=== PATIENT | female | born 1950 | race Caucasian/White ===

== ENCOUNTER → 2016-09-21 | Outpatient (CLI) | payer OTHER ==
[~2016-09-21] MED LIST: AKWA TEARS 15 M15 ML OPH; ALEVE220 MG PO; ALLERGY MEDICAT25 MG PO; ALPRAZOLAM0.5 M1 PO; ANTIVERT25 MG PO; ASPIRIN81 M1 PO; BENADRYL ALLERG25 M5 PO; BENADRYL25 MG PO; BENICAR20 MG PO; CARVEDILOL12.5 MG PO; CARVEDILOL6.25 MG PO; CLOPIDOGREL75 MG PO; COZAAR25 M1 PO; COZAAR25 MG PO; COZAAR50 M1 PO; Carafate1 GM PO; DAYPRO600 M1 PO; DONEPEZIL HCL5 MG PO; FAMOTIDINE40 MG PO; FLEXERIL10 MG PO; FLUTICASON0.05 MG/A2 NAS; HYDROCODONE BIT1 T11 PO; IMDUR ER30 MG PO; INCRUSE EL62.5 MCG/A INH; LIPITOR20 MG PO; LOSARTAN POTASS50 M1 PO; MEDROL DOSEPAK4 MG PO; Motrin,Rufen800 MG PO; NAPROXEN500 M1 PO; NEXIUM40 MG PO; PEPCID40 MG PO; PLAVIX75 MG PO; PREDNISONE10 MG PO; PREDNISONE20 MG PO; PREDNISONE50 MG PO; PREMARIN0.625 MG PO; PRILOSEC20 MG PO; PRILOSEC40 MG PO; ROBAXIN750 MG PO; SIMVASTATIN20 MG PO; SINGULAIR10 MG PO; SPIRIVA -- 3018 MCG PO; SYMBICORT 10.10.2 M1 IH; SYMBICORT1 AE1 INH; SYNTHROID,LEV100 MCG PO; SYNTHROID,LEV175 MCG PO; TESSALON PERLE100 MG PO; THEO-24200 MG PO; TORADOL10 MG PO; VENTOLIN 02.5 MG/3 M INH; VENTOLIN H0.09 MG/AC INH; VENTOLIN0.09 MG/AC IH; VENTOLIN0.09 MG/AC INH; VICODIN 5/500 505 MG PO; VICODIN 500 MG-1 TAB PO; XANAX0.5 MG PO; ZITHROMAX250 MG PO; ZOCOR40 MG PO
== END | disposition home or self-care (01) ==
LOC: CT 09:36
DX: I25.10 Atherosclerotic heart disease of native coronary artery without angina pectoris (principal); R91.1 Solitary pulmonary nodule; I10 Essential (primary) hypertension; Z95.1 Presence of aortocoronary bypass graft

== ENCOUNTER → 2016-12-27 | Outpatient (CLI) | payer OTHER ==
[2016-12-27 13:04] LABS: BASO # 0.1 10*3/uL (0.0-0.1); BASO % 0.8 % (0.0-1.0); EOS # 0.1 10*3/uL (0.0-0.4); EOS % 1.2 % (1.0-4.0); HEMATOCRIT 48.3 % (37.0-47.0); HEMOGLOBIN 15.8 g/dl (12.0-16.0); IG # 0.1 10*3/uL (0.0-0.1); LYMPH # 2.2 10*3/uL (1.3-4.4); LYMPH % 18.3 % (27.0-41.0); MEAN CELL VOLUME 94.2 fl (81.0-99.0); MEAN CORPUSCULAR HGB 30.8 pg (27.0-31.0); MEAN CORPUSCULAR HGB CONC 32.7 g/dl (33.0-37.0); MONO # 0.7 10*3/uL (0.1-1.0); MONO % 5.6 % (3.0-9.0); NEUT # 8.9 10*3/uL (2.3-7.9); NEUT % 73.5 % (47.0-73.0); PLATELET COUNT AUTOMATED 243 10*3/uL (130-400); RED BLOOD COUNT 5.13 10*6/uL (4.10-5.10); RED CELL DISTRI WIDTH 14.1 % (0-14.5); WHITE BLOOD COUNT 12.1 10*3/uL (4.8-10.8)
== END | disposition home or self-care (01) ==
LOC: LAB 12:43
PROVIDERS: Internal Medicine Hematology & Oncology
DX: D75.1 Secondary polycythemia (principal); D72.829 Elevated white blood cell count, unspecified

== ENCOUNTER → 2017-01-17 | Outpatient (CLI) | payer OTHER ==
[2017-01-17 13:19] LABS: BASO # 0.1 10*3/uL (0.0-0.1); BASO % 0.9 % (0.0-1.0); EOS # 0.2 10*3/uL (0.0-0.4); EOS % 2.6 % (1.0-4.0); HEMATOCRIT 47.2 % (37.0-47.0); HEMOGLOBIN 15.3 g/dl (12.0-16.0); LYMPH # 2.3 10*3/uL (1.3-4.4); LYMPH % 28.5 % (27.0-41.0); MEAN CELL VOLUME 95.2 fl (81.0-99.0); MEAN CORPUSCULAR HGB 30.8 pg (27.0-31.0); MEAN CORPUSCULAR HGB CONC 32.4 g/dl (33.0-37.0); MEAN PLATELET VOLUME 10.3 fl (9.6-12.3); MONO # 0.5 10*3/uL (0.1-1.0); NEUT % 61.6 % (47.0-73.0); PLATELET COUNT AUTOMATED 201 10*3/uL (130-400); RED BLOOD COUNT 4.96 10*6/uL (4.10-5.10); RED CELL DISTRI WIDTH 14.3 % (0-14.5); WHITE BLOOD COUNT 8.1 10*3/uL (4.8-10.8)
== END | disposition home or self-care (01) ==
LOC: LAB 13:04
PROVIDERS: Internal Medicine Hematology & Oncology
DX: D75.1 Secondary polycythemia (principal); D72.829 Elevated white blood cell count, unspecified

== ENCOUNTER → 2017-01-31 | Outpatient (CLI) | payer OTHER | END | disposition home or self-care (01) | LOC: MRI 09:00 | DX: R42 Dizziness and giddiness (principal); F02.80 Dementia in other diseases classified elsewhere, unspecified severity, without behavioral disturbance, psychotic disturbance, mood disturbance, and anxiety; R51 Headache; I10 Essential (primary) hypertension ==

== ENCOUNTER → 2017-02-17 | Outpatient (CLI) | payer OTHER ==
[2017-02-17 09:26] LABS: BASO # 0.1 10*3/uL (0.0-0.1); BASO % 0.9 % (0.0-1.0); EOS # 0.2 10*3/uL (0.0-0.4); EOS % 2.3 % (1.0-4.0); HEMATOCRIT 50.5 % (37.0-47.0); HEMOGLOBIN 16.3 g/dl (12.0-16.0); LYMPH # 2.3 10*3/uL (1.3-4.4); LYMPH % 26.3 % (27.0-41.0); MEAN CORPUSCULAR HGB CONC 32.3 g/dl (33.0-37.0); MEAN PLATELET VOLUME 9.9 fl (9.6-12.3); MONO # 0.7 10*3/uL (0.1-1.0); MONO % 7.6 % (3.0-9.0); NEUT # 5.4 10*3/uL (2.3-7.9); NEUT % 62.4 % (47.0-73.0); PLATELET COUNT AUTOMATED 225 10*3/uL (130-400); RED BLOOD COUNT 5.26 10*6/uL (4.10-5.10); RED CELL DISTRI WIDTH 14.5 % (0-14.5); WHITE BLOOD COUNT 8.6 10*3/uL (4.8-10.8)
== END | disposition home or self-care (01) ==
LOC: LAB 08:57
PROVIDERS: Internal Medicine Hematology & Oncology
DX: D75.1 Secondary polycythemia (principal); D72.829 Elevated white blood cell count, unspecified

== ENCOUNTER → 2017-02-24 | Day surgery (SDC) | payer OTHER ==
[~2017-02-24] MED LIST changes: +CIPRO500 MG PO; +NORCO 5-325 TA1 EACH PO
--- NOTE | ~2017-02-24 | PROC NOTE ---
[place], [place] PROCEDURE NOTE [id number] UN[facility] #: [id number] ROOM: DOCTOR: MONO DESHPANDE MD BIRTHDATE: [birth year] DOS: 02/24/2017 PREOPERATIVE DIAGNOSIS: Left lower back skin lesion. POSTOPERATIVE DIAGNOSIS: Left lower back skin lesion. PROCEDURE: Excision of left lower back skin lesion. SURGEON: Moon Deshpande MD [employer] PROFESSOR: MS3. ANESTHESIA: Local (1% plain lidocaine). INDICATIONS: This is a 66-year-old lady with a longstanding history of mole on the left lower back and she wants it removed today. The procedure and its complications were explained to the patient in detail. Complications that were discussed included, but were not limited to bleeding, infection, hematoma/seroma/abscess formation and prolonged pain. She agreed to proceed. DESCRIPTION OF PROCEDURE: After identifying the patient, the patient was brought to the operating suite and placed in a right lateral position. The parts were painted and draped and a timeout procedure was called and an incision was marked in an elliptical fashion and local anesthesia was infiltrated in the line of the incision. Incision was made and the mass was excised in its entirety and sent for histopathological diagnosis. Thereafter, hemostasis was achieved with the help of electrocautery. The subcutaneous tissue was approximated with the help of 3-0 Vicryl in interrupted fashion and the skin edges approximated with the help of 4-0 Vicryl in a subcuticular interrupted fashion. Dressing was placed. The patient tolerated the procedure well and was brought back to the recovery room in stable fashion. There were no complications. Dr. Mono Deshpande, the attending surgeon, was present throughout the operating case. Mono Deshpande MD CM:PROCNOTE:PROCEDURE NOTE 0852 MONO DESHPANDE MD
[2017-02-24 08:05] VITALS: BP 158/91
[2017-02-24 08:28] VITALS: BP 157/104
== END | disposition home or self-care (01) ==
LOC: SDC 02-21 11:00
DX: L82.0 Inflamed seborrheic keratosis (principal); F41.9 Anxiety disorder, unspecified; E07.9 Disorder of thyroid, unspecified; I10 Essential (primary) hypertension; K21.9 Gastro-esophageal reflux disease without esophagitis; J43.9 Emphysema, unspecified; Z87.891 Personal history of nicotine dependence; Z90.710 Acquired absence of both cervix and uterus; J30.2 Other seasonal allergic rhinitis; Z95.2 Presence of prosthetic heart valve; Z83.3 Family history of diabetes mellitus; Z82.49 Family history of ischemic heart disease and other diseases of the circulatory system; Z80.9 Family history of malignant neoplasm, unspecified; Z82.5 Family history of asthma and other chronic lower respiratory diseases; Z98.890 Other specified postprocedural states

== ENCOUNTER 2017-02-25 10:24 | Emergency (ER) | payer OTHER ==
[~2017-02-25] VITALS: Wt 86.2 kg
[~2017-02-25 10:24] MED LIST changes: -CIPRO500 MG PO
[2017-02-25 10:25] VITALS: BP 164/76
[2017-02-25 10:47] LABS: BASO # 0.1 10*3/uL (0.0-0.1); BASO % 0.9 % (0.0-1.0); EOS # 0.2 10*3/uL (0.0-0.4); EOS % 2.5 % (1.0-4.0); HEMATOCRIT 50.1 % (37.0-47.0); HEMOGLOBIN 16.4 g/dl (12.0-16.0); LYMPH # 2.1 10*3/uL (1.3-4.4); LYMPH % 28.1 % (27.0-41.0); MEAN CELL VOLUME 94.9 fl (81.0-99.0); MEAN CORPUSCULAR HGB 31.1 pg (27.0-31.0); MEAN CORPUSCULAR HGB CONC 32.7 g/dl (33.0-37.0); MONO # 0.4 10*3/uL (0.1-1.0); MONO % 4.8 % (3.0-9.0); NEUT # 4.8 10*3/uL (2.3-7.9); NEUT % 63.4 % (47.0-73.0); PLATELET COUNT AUTOMATED 202 10*3/uL (130-400); RED BLOOD COUNT 5.28 10*6/uL (4.10-5.10); RED CELL DISTRI WIDTH 14.5 % (0-14.5); WHITE BLOOD COUNT 7.6 10*3/uL (4.8-10.8)
[2017-02-25 10:56] LABS: PROTHROMBIN TIME 10.6 SECONDS (9.0-12.4)
[2017-02-25 11:00] LABS: ALBUMIN 4.3 gm/dl (3.1-4.5); BILIRUBIN, TOTAL 0.4 mg/dl (0.2-1.0); POTASSIUM 4.3 mmol/L (3.5-5.1); TOTAL PROTEIN 7.8 gm/dL (6.4-8.2)
[2017-02-25 11:17] LABS: BILIRUBIN NEGATIVE (NEGATIVE); BLOOD 3+ (NEGATIVE); CLARITY CLOUDY (CLEAR); COLOR YELLOW (YELLOW); GLUCOSE NEGATIVE (NEGATIVE); KETONE NEGATIVE (NEGATIVE); LEUKO ESTERASE 3+ (NEGATIVE); NITRITE NEGATIVE (NEGATIVE); PROTEIN NEGATIVE (NEGATIVE); SPECIFIC GRAVITY 1.015 (1.005-1.030); UROBILINOGEN 0.2 E.U./dl (0.2-1.0)
[2017-02-25 11:32] LABS: RBC TNTC rbc/hpf (0-2); URINE REFLEX COMMENT YES (NO); WBC TNTC wbc/hpf (0-5)
[2017-02-25] MEDS ORDERED: CIPRO500 MG PO (11:35)
== END 2017-02-25 12:03 | disposition home or self-care (01) ==
LOC: ED 10:24
PROVIDERS: Nurse Practitioner Family
DX: N39.0 Urinary tract infection, site not specified (principal); R31.9 Hematuria, unspecified; R03.0 Elevated blood-pressure reading, without diagnosis of hypertension; J44.9 Chronic obstructive pulmonary disease, unspecified; I25.10 Atherosclerotic heart disease of native coronary artery without angina pectoris; F03.90 Unspecified dementia, unspecified severity, without behavioral disturbance, psychotic disturbance, mood disturbance, and anxiety; K21.9 Gastro-esophageal reflux disease without esophagitis; K76.0 Fatty (change of) liver, not elsewhere classified; E03.9 Hypothyroidism, unspecified; F17.210 Nicotine dependence, cigarettes, uncomplicated; E66.9 Obesity, unspecified; Z68.39 Body mass index [BMI] 39.0-39.9, adult; Z98.890 Other specified postprocedural states; Z85.118 Personal history of other malignant neoplasm of bronchus and lung; Z90.710 Acquired absence of both cervix and uterus; Z79.899 Other long term (current) drug therapy

== ENCOUNTER → 2017-06-06 | Outpatient (CLI) | payer OTHER, MEDICARE ==
[~2017-06-06] MED LIST changes: +CIPRO500 MG PO
[2017-06-06 09:14] LABS: BUN 25 mg/dl (7-24); CREATININE 0.88 mg/dL (0.55-1.02)
== END | disposition home or self-care (01) ==
LOC: LAB 08:20 → CT 09:00
PROVIDERS: Family Medicine
DX: R91.1 Solitary pulmonary nodule (principal)

== ENCOUNTER → 2017-06-21 | Outpatient (CLI) | payer MEDICARE ==
[2017-06-21 10:47] LABS: BASO # 0.1 10*3/uL (0.0-0.1); EOS # 0.3 10*3/uL (0.0-0.4); HEMATOCRIT 47.4 % (37.0-47.0); HEMOGLOBIN 15.3 g/dl (12.0-16.0); LYMPH # 1.6 10*3/uL (1.3-4.4); LYMPH % 26.5 % (27.0-41.0); MEAN CELL VOLUME 96.3 fl (81.0-99.0); MEAN CORPUSCULAR HGB 31.1 pg (27.0-31.0); MEAN CORPUSCULAR HGB CONC 32.3 g/dl (33.0-37.0); MEAN PLATELET VOLUME 9.7 fl (9.6-12.3); MONO # 0.4 10*3/uL (0.1-1.0); NEUT # 3.7 10*3/uL (2.3-7.9); PLATELET COUNT AUTOMATED 242 10*3/uL (130-400); RED BLOOD COUNT 4.92 10*6/uL (4.10-5.10); RED CELL DISTRI WIDTH 14.4 % (0-14.5); WHITE BLOOD COUNT 6.2 10*3/uL (4.8-10.8)
== END | disposition home or self-care (01) ==
LOC: LAB 10:13
PROVIDERS: Internal Medicine Hematology & Oncology
DX: D75.1 Secondary polycythemia (principal)

== ENCOUNTER 2017-08-04 10:20 | Emergency (ER) | payer MEDICARE ==
[~2017-08-04] VITALS: Wt 90.7 kg
[2017-08-04 10:36] VITALS: BP 165/93
[2017-08-04 10:44] LABS: BASO # 0.1 10*3/uL (0.0-0.1); BASO % 0.8 % (0.0-1.0); EOS # 0.4 10*3/uL (0.0-0.4); EOS % 4.9 % (1.0-4.0); HEMATOCRIT 46.6 % (37.0-47.0); HEMOGLOBIN 15.6 g/dl (12.0-16.0); LYMPH % 27.6 % (27.0-41.0); MEAN CELL VOLUME 93.6 fl (81.0-99.0); MEAN CORPUSCULAR HGB 31.3 pg (27.0-31.0); MEAN CORPUSCULAR HGB CONC 33.5 g/dl (33.0-37.0); MEAN PLATELET VOLUME 9.7 fl (9.6-12.3); MONO # 0.6 10*3/uL (0.1-1.0); NEUT # 4.3 10*3/uL (2.3-7.9); NEUT % 58.4 % (47.0-73.0); PLATELET COUNT AUTOMATED 223 10*3/uL (130-400); RED BLOOD COUNT 4.98 10*6/uL (4.10-5.10); WHITE BLOOD COUNT 7.4 10*3/uL (4.8-10.8)
[2017-08-04 10:53] LABS: ACT PARTIAL THROMBO TIME 25.6 SECONDS (20.8-31.5)
[2017-08-04 11:05] LABS: ALBUMIN 3.8 gm/dl (3.1-4.5); ALKALINE PHOSPHATASE 101 U/L (45-117); BUN 19 mg/dl (7-24); CHLORIDE 104 mmol/L (98-107); CREATININE 1.02 mg/dL (0.55-1.02); POTASSIUM 4.4 mmol/L (3.5-5.1); SGOT/AST 37 IU/L (3-35); SGPT/ALT 59 U/L (12-78); SODIUM 138 mmol/L (136-145); TOTAL PROTEIN 7.2 gm/dL (6.4-8.2)
[2017-08-04 11:08] LABS: TROPONIN I < 0.015 ng/ml (<0.045)
[2017-08-04 11:52] LABS: BILIRUBIN NEGATIVE (NEGATIVE); BLOOD NEGATIVE (NEGATIVE); COLOR YELLOW (YELLOW); GLUCOSE NEGATIVE (NEGATIVE); KETONE TRACE (NEGATIVE); LEUKO ESTERASE NEGATIVE (NEGATIVE); NITRITE NEGATIVE (NEGATIVE); PH 6.5 (5.0-9.0); UROBILINOGEN 0.2 E.U./dl (0.2-1.0)
[2017-08-04 12:13] LABS: CLARITY CLEAR (CLEAR); WBC 0-2 wbc/hpf (0-5)
== END 2017-08-04 12:19 | disposition left against medical advice (07) ==
LOC: ED 10:20
PROVIDERS: Emergency Medicine; Nurse Practitioner Family
DX: R07.89 Other chest pain (principal); F17.210 Nicotine dependence, cigarettes, uncomplicated; F10.10 Alcohol abuse, uncomplicated; Z79.899 Other long term (current) drug therapy; Z90.710 Acquired absence of both cervix and uterus; Z95.5 Presence of coronary angioplasty implant and graft

== ENCOUNTER 2017-09-07 12:56 | Emergency (ER) | payer MEDICARE ==
[~2017-09-07] VITALS: Ht 152.4 cm; Wt 90.7 kg
[2017-09-07 13:04] VITALS: BP 142/60
[2017-09-07 13:44] LABS: BASO # 0.1 10*3/uL (0.0-0.1); BASO % 0.8 % (0.0-1.0); EOS # 0.3 10*3/uL (0.0-0.4); EOS % 3.7 % (1.0-4.0); HEMATOCRIT 47.8 % (37.0-47.0); HEMOGLOBIN 15.8 g/dl (12.0-16.0); LYMPH # 1.8 10*3/uL (1.3-4.4); LYMPH % 21.7 % (27.0-41.0); MEAN CELL VOLUME 93.5 fl (81.0-99.0); MEAN CORPUSCULAR HGB 30.9 pg (27.0-31.0); MEAN CORPUSCULAR HGB CONC 33.1 g/dl (33.0-37.0); MEAN PLATELET VOLUME 9.6 fl (9.6-12.3); MONO # 0.7 10*3/uL (0.1-1.0); MONO % 8.7 % (3.0-9.0); NEUT # 5.4 10*3/uL (2.3-7.9); NEUT % 63.9 % (47.0-73.0); PLATELET COUNT AUTOMATED 234 10*3/uL (130-400); RED BLOOD COUNT 5.11 10*6/uL (4.10-5.10); RED CELL DISTRI WIDTH 13.7 % (0-14.5); WHITE BLOOD COUNT 8.4 10*3/uL (4.8-10.8)
[2017-09-07 13:59] LABS: ALBUMIN 4.2 gm/dl (3.1-4.5); CREATININE 1.2 mg/dL (0.55-1.02); POTASSIUM 4.4 mmol/L (3.5-5.1); TOTAL PROTEIN 7.7 gm/dL (6.4-8.2)
[2017-09-07] MEDS ORDERED: DELTASONE20 M1 PO (15:20)
[2017-09-07] MEDS ORDERED: VIBRAMYCIN100 MG PO (15:20)
== END 2017-09-07 15:29 | disposition home or self-care (01) ==
LOC: ED 12:56
PROVIDERS: Physician Assistant
DX: J44.1 Chronic obstructive pulmonary disease with (acute) exacerbation (principal); Z98.890 Other specified postprocedural states; Z90.710 Acquired absence of both cervix and uterus; Z79.899 Other long term (current) drug therapy; Z87.891 Personal history of nicotine dependence

== ENCOUNTER 2017-09-29 12:45 | Inpatient (IN) | payer MEDICARE ==
[~2017-09-29] VITALS: Ht 152.4 cm; Wt 93.9 kg
--- NOTE | ~2017-09-29 | EKG ---
[place], [place] ELECTROCARDIOGRAM REPORT NAME: ASHLEY ACVAZOS UNIT #: [id number] ROOM: [facility] DOCTOR: SMITH TREJO MD BIRTHDATE: [birth year] DOS: 09/29/2017 TIME: 1729 hours. FINDINGS: 1. Normal sinus rhythm at 74 beats per minute. 2. Left anterior hemiblock. 3. Low voltage T waves in lateral chest leads. 4. No significant change from ECG done about 5 hours earlier. SMITH TREJO MD CM:EKGRPT:ELECTROCARDIOGRAM REPORT 1349 1752 SMITH TREJO MD
--- NOTE | ~2017-09-29 | EKG ---
[place], [place] ELECTROCARDIOGRAM REPORT NAME: ASHLEY CAVAZOS UNIT #: [id number] ROOM: 502 DOCTOR: SMITH TREJO MD BIRTHDATE: [birth year] DOS: 09/29/2017 TIME: 2040 hours. FINDINGS: 1. Normal sinus rhythm at 67 beats per minute. 2. Poor R-wave progression is noted. 3. Moderate left axis deviation. 4. No significant change from an ECG done about 3 hours earlier. SMITH TREJO MD CM:EKGRPT:ELECTROCARDIOGRAM REPORT 1349 1753 SMITH TREJO MD
--- NOTE | ~2017-09-29 | CON ---
[place], [place] REPORT OF CONSULTATION NAME: ASHLEY CAVAZOS UNIT #: [id number] ROOM: 502 DOCTOR: SMITH TREJO MD BIRTHDATE: [birth year] DOS: 09/30/2017 HISTORY OF PRESENT ILLNESS: This is a 66-year-old -[place]o woman with a history of coronary artery disease. She had stents deployed in the circumflex artery and had also stented in the left anterior descending artery and had mild disease in the right coronary artery. LV systolic function has been normal. She has essential hypertension, COPD, hypothyroidism, morbid obesity, anxiety and GERD. She does not smoke now, quit couple of years ago and no alcohol use. She has had upper abdominal pain more located under the right rib cage for the last one week. Symptoms have come and gone many times lasting for few hours each time. She was bothered by the same symptom yesterday and decided to come to the Emergency Department and I was asked to evaluate with possible cardiac conduction. She has not had any anterior chest pain, pressure and jaw discomfort. She has not had any palpitation, dizziness or swelling of the lower extremity. She has no orthopnea. She did not have any sweating or nausea or shortness of breath with this pain. CURRENT MEDICATIONS: Reviewed. PHYSICAL EXAMINATION: GENERAL: The patient is afebrile. She is moderately obese. VITAL SIGNS: Pulse is 60 regular, blood pressure 135/64. NECK: JVP is normal. No bruit in the neck. HEART: There is no cardiomegaly, no murmurs are present. EXTREMITIES: There is no edema in the lower extremities. Pedal pulses are excellent. RESPIRATORY: Breath sounds are somewhat diminished. She has a few crackles here and there. ABDOMEN: It is enlarged, soft and no guarding or rigidity. There is no upper abdominal tenderness. DIAGNOSTIC STUDIES: ECG showed normal sinus rhythm with flattened T waves in lateral chest leads and left anterior hemiblock. Troponin I levels have been normal. Gallbladder ultrasound did not demonstrate any problem. IMPRESSION: This patient had upper abdominal pain which I believe is noncardiac. No cardiac workup is necessary and from cardiac standpoint, she may be discharged home. I thank you for this consult. [place], [place] REPORT OF CONSULTATION NAME: ASHLEY CAVAZOS UNIT #: [id number] ROOM: [facility] DOCTOR: SMITH TREJO MD BIRTHDATE: [birth year] SMITH TREJO MD CM:CONSTR:REPORT OF CONSULTATION 1413 10/01/17 0002 interface
--- NOTE | ~2017-09-29 | EKG ---
[place], [place] ELECTROCARDIOGRAM REPORT NAME: ASHLEY CAVAZOS UNIT #: [id number] ROOM: [facility] DOCTOR: SMITH TREJO MD BIRTHDATE: [birth year] DOS: 09/29/2017 TIME: 1250 hours. FINDINGS: 1. Normal sinus rhythm at 80 beats per minute. 2. Left anterior hemiblock. 3. An abnormal ECG. 4. No previous tracing is available for comparison. SMITH TREJO MD CM:EKGRPT:ELECTROCARDIOGRAM REPORT 1349 1750 SMITH TREJO MD
[~2017-09-29 12:45] MED LIST changes: +DELTASONE20 M1 PO; +VIBRAMYCIN100 MG PO
[2017-09-29 13:01] VITALS: BP 137/80
[2017-09-29 14:30] LABS: BASO # 0.1 10*3/uL (0.0-0.1); BASO % 1.1 % (0.0-1.0); EOS # 0.3 10*3/uL (0.0-0.4); EOS % 4.6 % (1.0-4.0); HEMATOCRIT 46.6 % (37.0-47.0); HEMOGLOBIN 15.5 g/dl (12.0-16.0); LYMPH # 1.5 10*3/uL (1.3-4.4); LYMPH % 25.8 % (27.0-41.0); MEAN CELL VOLUME 94.5 fl (81.0-99.0); MEAN CORPUSCULAR HGB 31.4 pg (27.0-31.0); MEAN CORPUSCULAR HGB CONC 33.3 g/dl (33.0-37.0); MEAN PLATELET VOLUME 9.8 fl (9.6-12.3); MONO # 0.5 10*3/uL (0.1-1.0); MONO % 8.9 % (3.0-9.0); NEUT # 3.4 10*3/uL (2.3-7.9); NEUT % 59.4 % (47.0-73.0); PLATELET COUNT AUTOMATED 188 10*3/uL (130-400); RED BLOOD COUNT 4.93 10*6/uL (4.10-5.10); RED CELL DISTRI WIDTH 14.1 % (0-14.5); WHITE BLOOD COUNT 5.7 10*3/uL (4.8-10.8)
[2017-09-29 14:48] LABS: ALBUMIN 3.8 gm/dl (3.1-4.5); ALKALINE PHOSPHATASE 100 U/L (45-117); BUN 23 mg/dl (7-24); CHLORIDE 103 mmol/L (98-107); CREATININE 0.98 mg/dL (0.55-1.02); POTASSIUM 4.3 mmol/L (3.5-5.1); SGOT/AST 47 IU/L (3-35); SGPT/ALT 82 U/L (12-78); SODIUM 138 mmol/L (136-145); TOTAL PROTEIN 7.3 gm/dL (6.4-8.2)
[2017-09-29 14:51] LABS: TROPONIN I < 0.015 ng/ml (<0.045)
[2017-09-29 17:00] VITALS: BP 119/67
[2017-09-29 17:05] VITALS: BP 119/67
[2017-09-29 17:22] VITALS: BP 119/67
[2017-09-29 20:00] VITALS: BP 134/68
[2017-09-30] VITALS: BP 151/70
[2017-09-30 06:38] LABS: BASO # 0.1 10*3/uL (0.0-0.1); BASO % 0.9 % (0.0-1.0); EOS # 0.4 10*3/uL (0.0-0.4); EOS % 6.8 % (1.0-4.0); HEMATOCRIT 44.8 % (37.0-47.0); HEMOGLOBIN 14.9 g/dl (12.0-16.0); LYMPH # 1.8 10*3/uL (1.3-4.4); LYMPH % 30.3 % (27.0-41.0); MEAN CELL VOLUME 93.5 fl (81.0-99.0); MEAN CORPUSCULAR HGB 31.1 pg (27.0-31.0); MEAN CORPUSCULAR HGB CONC 33.3 g/dl (33.0-37.0); MONO # 0.5 10*3/uL (0.1-1.0); MONO % 8.1 % (3.0-9.0); NEUT # 3.1 10*3/uL (2.3-7.9); NEUT % 53.6 % (47.0-73.0); PLATELET COUNT AUTOMATED 186 10*3/uL (130-400); RED BLOOD COUNT 4.79 10*6/uL (4.10-5.10); RED CELL DISTRI WIDTH 14.1 % (0-14.5); WHITE BLOOD COUNT 5.8 10*3/uL (4.8-10.8)
[2017-09-30 07:04] LABS: ALBUMIN 3.7 gm/dl (3.1-4.5); ALKALINE PHOSPHATASE 96 U/L (45-117); BUN 19 mg/dl (7-24); CHLORIDE 100 mmol/L (98-107); CHOLESTEROL 196 mg/dL (<200); CREATININE 0.81 mg/dL (0.55-1.02); FREE T4 1.33 ng/dl (0.76-1.46); HDL CHOLESTEROL 68 mg/dl (40-60); LDL CHOLESTEROL 103 mg/dL (9-159); PHOSPHOROUS 3.9 mg/dL (2.5-4.9); POTASSIUM 3.7 mmol/L (3.5-5.1); SGOT/AST 57 IU/L (3-35); SGPT/ALT 85 U/L (12-78); SODIUM 137 mmol/L (136-145); TRIGLYCERIDES 123 mg/dl (<150); VLDL CHOLESTEROL 25 mg/dL (6-40)
[2017-09-30 08:00] VITALS: BP 143/85
[2017-09-30 12:00] VITALS: BP 135/64
[2017-09-30 12:12] LABS: VITAMIN D, 25-HYDROXY 35.4 ng/mL (30-100)
[2017-09-30] MEDS ORDERED: PANTOPRAZOLE SO40 MG PO (14:15)
== END 2017-09-30 14:30 | disposition home or self-care (01) | DRG 563 ==
LOC: ED 12:45 → 5E 16:25 → EDHOLD 16:25 → 5E 16:33
PROVIDERS: Emergency Medicine; Internal Medicine
DX: S29.011A Strain of muscle and tendon of front wall of thorax, initial encounter (principal); F03.90 Unspecified dementia, unspecified severity, without behavioral disturbance, psychotic disturbance, mood disturbance, and anxiety; E66.01 Morbid (severe) obesity due to excess calories; K76.0 Fatty (change of) liver, not elsewhere classified; Z68.41 Body mass index [BMI] 40.0-44.9, adult; I25.119 Atherosclerotic heart disease of native coronary artery with unspecified angina pectoris; E83.41 Hypermagnesemia; J43.9 Emphysema, unspecified; D72.810 Lymphocytopenia; F10.21 Alcohol dependence, in remission; K44.9 Diaphragmatic hernia without obstruction or gangrene; E03.9 Hypothyroidism, unspecified; I10 Essential (primary) hypertension; F41.9 Anxiety disorder, unspecified; K21.9 Gastro-esophageal reflux disease without esophagitis; R74.0 Nonspecific elevation of levels of transaminase and lactic acid dehydrogenase [LDH]; X58.XXXA Exposure to other specified factors, initial encounter; Y93.89 Activity, other specified; Y92.89 Other specified places as the place of occurrence of the external cause; Y99.8 Other external cause status; Z72.0 Tobacco use; Z85.118 Personal history of other malignant neoplasm of bronchus and lung; Z71.6 Tobacco abuse counseling; Z83.3 Family history of diabetes mellitus; Z82.49 Family history of ischemic heart disease and other diseases of the circulatory system; Z79.2 Long term (current) use of antibiotics; Z79.899 Other long term (current) drug therapy; Z87.01 Personal history of pneumonia (recurrent); I25.2 Old myocardial infarction; Z87.440 Personal history of urinary (tract) infections; Z90.710 Acquired absence of both cervix and uterus; Z95.9 Presence of cardiac and vascular implant and graft, unspecified; Z82.5 Family history of asthma and other chronic lower respiratory diseases

== ENCOUNTER → 2017-11-28 | Outpatient (CLI) | payer MEDICARE ==
[~2017-11-28] MED LIST changes: +PANTOPRAZOLE SO40 MG PO
== END | disposition home or self-care (01) ==
LOC: NM 02:09
DX: I10 Essential (primary) hypertension (principal); R10.84 Generalized abdominal pain

== ENCOUNTER → 2018-02-01 | Outpatient (CLI) | payer MEDICARE ==
[2018-02-01 11:25] LABS: BASO # 0.1 10*3/uL (0.0-0.1); BASO % 0.9 % (0.0-1.0); EOS # 0.3 10*3/uL (0.0-0.4); EOS % 4.7 % (1.0-4.0); HEMATOCRIT 48.6 % (37.0-47.0); HEMOGLOBIN 15.6 g/dl (12.0-16.0); LYMPH % 30.6 % (27.0-41.0); MEAN CELL VOLUME 94.4 fl (81.0-99.0); MEAN CORPUSCULAR HGB 30.3 pg (27.0-31.0); MEAN CORPUSCULAR HGB CONC 32.1 g/dl (33.0-37.0); MEAN PLATELET VOLUME 10.1 fl (9.6-12.3); MONO # 0.6 10*3/uL (0.1-1.0); MONO % 8.8 % (3.0-9.0); NEUT # 3.6 10*3/uL (2.3-7.9); NEUT % 54.5 % (47.0-73.0); PLATELET COUNT AUTOMATED 240 10*3/uL (130-400); RED BLOOD COUNT 5.15 10*6/uL (4.10-5.10); RED CELL DISTRI WIDTH 14.2 % (0-14.5); WHITE BLOOD COUNT 6.6 10*3/uL (4.8-10.8)
[2018-02-01 11:26] LABS: BILIRUBIN NEGATIVE (NEGATIVE); BLOOD NEGATIVE (NEGATIVE); CLARITY SL CLOUDY (CLEAR); COLOR YELLOW (YELLOW); GLUCOSE NEGATIVE (NEGATIVE); KETONE NEGATIVE (NEGATIVE); LEUKO ESTERASE NEGATIVE (NEGATIVE); NITRITE NEGATIVE (NEGATIVE); SPECIFIC GRAVITY 1.025 (1.005-1.030); UROBILINOGEN 0.2 E.U./dl (0.2-1.0)
[2018-02-01 11:40] LABS: BACTERIA 2+; EPITHELIAL CELLS 15-20
[2018-02-01 11:58] LABS: ALBUMIN 3.8 gm/dl (3.1-4.5); BUN 20 mg/dl (7-24); CHLORIDE 106 mmol/L (98-107); CREATININE 0.97 mg/dL (0.55-1.02); FREE T4 1.56 ng/dl (0.76-1.46); PHOSPHOROUS 4.3 mg/dL (2.5-4.9); POTASSIUM 4.5 mmol/L (3.5-5.1); SODIUM 140 mmol/L (136-145)
[2018-02-01 12:06] LABS: THYROID STIM HORMONE (HS) < 0.005 uIU/ml (0.358-4.75)
[2018-02-01 12:44] LABS: PTH INTACT 41.7 pg/mL (14.0-72.0); VITAMIN D, 25-HYDROXY 24.4 ng/mL (30-100)
== END | disposition home or self-care (01) ==
LOC: LAB 10:56
PROVIDERS: Internal Medicine Nephrology
DX: N18.3 Chronic kidney disease, stage 3 (moderate) (principal); N25.81 Secondary hyperparathyroidism of renal origin; E03.9 Hypothyroidism, unspecified

== ENCOUNTER 2018-02-19 10:45 | Emergency (ER) | payer MEDICARE ==
[~2018-02-19] VITALS: Ht 152.4 cm; Wt 90.7 kg
[2018-02-19 10:46] VITALS: BP 140/85
[2018-02-19 11:16] LABS: BASO # 0.1 10*3/uL (0.0-0.1); BASO % 0.9 % (0.0-1.0); EOS # 0.4 10*3/uL (0.0-0.4); EOS % 3.6 % (1.0-4.0); HEMATOCRIT 49.5 % (37.0-47.0); HEMOGLOBIN 16.3 g/dl (12.0-16.0); LYMPH # 2.1 10*3/uL (1.3-4.4); LYMPH % 21.8 % (27.0-41.0); MEAN CELL VOLUME 92.7 fl (81.0-99.0); MEAN CORPUSCULAR HGB 30.5 pg (27.0-31.0); MEAN CORPUSCULAR HGB CONC 32.9 g/dl (33.0-37.0); MEAN PLATELET VOLUME 10.3 fl (9.6-12.3); MONO # 0.9 10*3/uL (0.1-1.0); MONO % 8.9 % (3.0-9.0); NEUT # 6.3 10*3/uL (2.3-7.9); NEUT % 64.6 % (47.0-73.0); PLATELET COUNT AUTOMATED 239 10*3/uL (130-400); RED BLOOD COUNT 5.34 10*6/uL (4.10-5.10); RED CELL DISTRI WIDTH 13.6 % (0-14.5); WHITE BLOOD COUNT 9.7 10*3/uL (4.8-10.8)
[2018-02-19 11:27] LABS: ACT PARTIAL THROMBO TIME 27.5 SECONDS (20.8-31.5)
[2018-02-19 11:34] LABS: ALKALINE PHOSPHATASE 132 U/L (45-117); BUN 16 mg/dl (7-24); CHLORIDE 107 mmol/L (98-107); CREATININE 0.96 mg/dL (0.55-1.02); POTASSIUM 4.4 mmol/L (3.5-5.1); SGOT/AST 36 IU/L (3-35); SGPT/ALT 47 U/L (12-78); SODIUM 142 mmol/L (136-145); TOTAL PROTEIN 7.8 gm/dL (6.4-8.2)
[2018-02-19 11:36] LABS: TROPONIN I < 0.015 ng/ml (<0.045)
[2018-02-19] MEDS ORDERED: VIBRAMYCIN100 MG PO (12:03)
[2018-02-19] MEDS ORDERED: PREDNISONE50 MG PO (12:03)
== END 2018-02-19 12:05 | disposition home or self-care (01) ==
LOC: ED 10:45
PROVIDERS: Emergency Medicine
DX: J44.1 Chronic obstructive pulmonary disease with (acute) exacerbation (principal); J45.909 Unspecified asthma, uncomplicated; I25.10 Atherosclerotic heart disease of native coronary artery without angina pectoris; K21.9 Gastro-esophageal reflux disease without esophagitis; I10 Essential (primary) hypertension; E83.41 Hypermagnesemia; F41.9 Anxiety disorder, unspecified; Z90.710 Acquired absence of both cervix and uterus; Z79.899 Other long term (current) drug therapy

== ENCOUNTER 2018-03-07 10:25 | Inpatient (IN) | payer MEDICARE ==
[~2018-03-07] VITALS: Ht 152.4 cm; Wt 91.8 kg
--- NOTE | ~2018-03-07 | CON ---
[place], [place] REPORT OF CONSULTATION NAME: ASHLEY CAVAZOS UNIT #: [id number] ROOM: 504 DOCTOR: LEVY SINGHRJ BIRTHDATE: [birth year] DOS: 03/08/2018 HISTORY OF PRESENT ILLNESS: A 67-year-old female with a history of previous coronary artery disease, extremely poor historian. Apparently, I am covering for Dr. Lawson. Apparently, the patient had a stress test as per Dr. Lawson in 12/2017 and was reported normal. Her ejection fraction was 60%. The patient is admitted with chest discomfort. No acute EKG changes, suggestion of myocardial infarction, or injury. Right now, she is chest pain free. All the cardiac enzymes have been negative. PAST MEDICAL HISTORY: Coronary artery disease, dementia, history of myocardial infarction, history of lung cancer, and history of hyperlipidemia. PAST SURGICAL HISTORY: Hysterectomy and history of coronary stent. MEDICATIONS: She is on isosorbide, levothyroxine, losartan, simvastatin, clopidogrel, and inhalers. SOCIAL HISTORY: Former smoker. Denies any alcohol abuse. FAMILY HISTORY: Positive for coronary artery disease. REVIEW OF SYSTEMS: CONSTITUTIONAL: No fever and no chills. HEENT: No visual disturbances or hearing problems. CARDIOVASCULAR: As reported in HPI. GASTROINTESTINAL: No nausea and no vomiting. PHYSICAL EXAMINATION: VITAL SIGNS: Blood pressure is 130/70. She is in sinus rhythm. HEENT: Unremarkable. NECK: Supple. No JVD. LUNGS: Clear. HEART: Sounds are regular. NEUROLOGIC: Stable. LABORATORY DATA: Electrolytes are all within normal limits. Creatinine is normal. Troponins have all been negative. INR is 1. Hemoglobin and hematocrit within normal limits 15 and 48. DIAGNOSTIC DATA: EKG, sinus with nonspecific ST-T changes. IMPRESSION: The patient with a known history of coronary artery stent placement, readmitted with chest discomfort, hypertension, hyperlipidemia, and dementia. RECOMMENDATIONS: We will try to obtain the stress test report done in Dr. Martinez's office. Also, we will discuss with Dr. Lawson, intensify the medical regimen, probably might have to increase the isosorbide from 30 mg to 60 mg intensify medical regimen as reported stress test done last month was normal and [place], [place] REPORT OF CONSULTATION NAME: ASHLEY CAVAZOS UNIT #: [id number] ROOM: 504 DOCTOR: LEVY SINGH,RJ BIRTHDATE: [birth year] we will follow up. If the isosorbide does not bring down any angina, might have to switch to Ranexa. RJ LOCKETT MD CM:CONSTR:REPORT OF CONSULTATION 0728 03/08/18 0759 interface
[2018-03-07 10:27] VITALS: BP 132/83
[2018-03-07 10:50] VITALS: BP 123/72
[2018-03-07 10:50] LABS: BASO # 0.1 10*3/uL (0.0-0.1); BASO % 0.8 % (0.0-1.0); EOS # 0.2 10*3/uL (0.0-0.4); EOS % 3.1 % (1.0-4.0); HEMATOCRIT 48.1 % (37.0-47.0); HEMOGLOBIN 15.7 g/dl (12.0-16.0); LYMPH # 2.1 10*3/uL (1.3-4.4); LYMPH % 27.3 % (27.0-41.0); MEAN CELL VOLUME 92.3 fl (81.0-99.0); MEAN CORPUSCULAR HGB 30.1 pg (27.0-31.0); MEAN CORPUSCULAR HGB CONC 32.6 g/dl (33.0-37.0); MONO # 0.7 10*3/uL (0.1-1.0); MONO % 9.1 % (3.0-9.0); NEUT # 4.5 10*3/uL (2.3-7.9); NEUT % 59.3 % (47.0-73.0); PLATELET COUNT AUTOMATED 213 10*3/uL (130-400); RED BLOOD COUNT 5.21 10*6/uL (4.10-5.10); RED CELL DISTRI WIDTH 14.2 % (0-14.5); WHITE BLOOD COUNT 7.6 10*3/uL (4.8-10.8)
[2018-03-07 10:59] LABS: ACT PARTIAL THROMBO TIME 26.9 SECONDS (20.8-31.5)
[2018-03-07 11:07] LABS: ALBUMIN 3.7 gm/dl (3.1-4.5); ALKALINE PHOSPHATASE 110 U/L (45-117); BUN 17 mg/dl (7-24); CHLORIDE 107 mmol/L (98-107); CREATININE 0.71 mg/dL (0.55-1.02); POTASSIUM 4.2 mmol/L (3.5-5.1); SGOT/AST 41 IU/L (3-35); SGPT/ALT 72 U/L (12-78); SODIUM 141 mmol/L (136-145); TOTAL PROTEIN 7.4 gm/dL (6.4-8.2)
[2018-03-07 11:09] LABS: TROPONIN I < 0.015 ng/ml (<0.045)
[2018-03-07 11:22] VITALS: BP 114/69
[2018-03-07 12:00] VITALS: BP 134/71
[2018-03-07] MEDS ORDERED: SIMVASTATIN80 MG PO (12:28)
[2018-03-07] MEDS ORDERED: CLARITIN10 MG PO (12:29)
[2018-03-07 16:00] VITALS: BP 160/65
[2018-03-07 20:00] VITALS: BP 121/50; BP 141/61
[2018-03-08] VITALS: BP 130/87
[2018-03-08 07:21] LABS: BASO # 0.1 10*3/uL (0.0-0.1); BASO % 1.1 % (0.0-1.0); EOS # 0.3 10*3/uL (0.0-0.4); EOS % 4.1 % (1.0-4.0); HEMATOCRIT 46.7 % (37.0-47.0); LYMPH # 1.8 10*3/uL (1.3-4.4); LYMPH % 28.1 % (27.0-41.0); MEAN CELL VOLUME 93.6 fl (81.0-99.0); MEAN CORPUSCULAR HGB 30.1 pg (27.0-31.0); MEAN CORPUSCULAR HGB CONC 32.1 g/dl (33.0-37.0); MEAN PLATELET VOLUME 10.4 fl (9.6-12.3); MONO # 0.6 10*3/uL (0.1-1.0); MONO % 9.5 % (3.0-9.0); NEUT # 3.7 10*3/uL (2.3-7.9); NEUT % 56.9 % (47.0-73.0); PLATELET COUNT AUTOMATED 181 10*3/uL (130-400); RED BLOOD COUNT 4.99 10*6/uL (4.10-5.10); RED CELL DISTRI WIDTH 14.1 % (0-14.5); WHITE BLOOD COUNT 6.5 10*3/uL (4.8-10.8)
[2018-03-08 07:34] LABS: CHLORIDE 102 mmol/L (98-107); SODIUM 137 mmol/L (136-145)
[2018-03-08 07:44] LABS: ALBUMIN 3.5 gm/dl (3.1-4.5); ALKALINE PHOSPHATASE 115 U/L (45-117); BUN 19 mg/dl (7-24); CHOLESTEROL 198 mg/dL (<200); HDL CHOLESTEROL 60 mg/dl (40-60); LDL CHOLESTEROL 112 mg/dL (9-159); PHOSPHOROUS 4.4 mg/dL (2.5-4.9); SGOT/AST 47 IU/L (3-35); SGPT/ALT 71 U/L (12-78); THYROID STIM HORMONE (HS) 0.046 uIU/ml (0.358-4.75); TOTAL PROTEIN 7.1 gm/dL (6.4-8.2); TRIGLYCERIDES 128 mg/dl (<150); VLDL CHOLESTEROL 26 mg/dL (6-40)
[2018-03-08 08:00] VITALS: BP 108/83
[2018-03-08 08:02] LABS: VITAMIN D, 25-HYDROXY 22.3 ng/mL (30-100)
[2018-03-08] MEDS ORDERED: Vitamin D PO (11:01)
== END 2018-03-08 12:15 | disposition home or self-care (01) | DRG 563 ==
LOC: ED 10:25 → EDHOLD 11:22 → 5E 11:22
PROVIDERS: Emergency Medicine; Internal Medicine Hospice and Palliative Medicine
DX: S29.011A Strain of muscle and tendon of front wall of thorax, initial encounter (principal); E66.01 Morbid (severe) obesity due to excess calories; F03.90 Unspecified dementia, unspecified severity, without behavioral disturbance, psychotic disturbance, mood disturbance, and anxiety; R56.9 Unspecified convulsions; J44.9 Chronic obstructive pulmonary disease, unspecified; I25.119 Atherosclerotic heart disease of native coronary artery with unspecified angina pectoris; R73.9 Hyperglycemia, unspecified; I10 Essential (primary) hypertension; E78.00 Pure hypercholesterolemia, unspecified; F41.1 Generalized anxiety disorder; J30.2 Other seasonal allergic rhinitis; K21.9 Gastro-esophageal reflux disease without esophagitis; X58.XXXA Exposure to other specified factors, initial encounter; E78.5 Hyperlipidemia, unspecified; K44.9 Diaphragmatic hernia without obstruction or gangrene; E03.9 Hypothyroidism, unspecified; R73.03 Prediabetes; E55.9 Vitamin D deficiency, unspecified; Z79.899 Other long term (current) drug therapy; Y93.89 Activity, other specified; Y92.89 Other specified places as the place of occurrence of the external cause; Z87.19 Personal history of other diseases of the digestive system; I25.2 Old myocardial infarction; Z85.118 Personal history of other malignant neoplasm of bronchus and lung; Z90.710 Acquired absence of both cervix and uterus; Z83.3 Family history of diabetes mellitus; Z82.49 Family history of ischemic heart disease and other diseases of the circulatory system; Z82.5 Family history of asthma and other chronic lower respiratory diseases; Z81.1 Family history of alcohol abuse and dependence; Z68.39 Body mass index [BMI] 39.0-39.9, adult

== ENCOUNTER 2019-07-20 11:02 | Inpatient (IN) | payer MEDICARE ==
[~2019-07-20] VITALS: Ht 152.4 cm; Wt 94.0 kg
--- NOTE | ~2019-07-20 | CON ---
[place], [place] REPORT OF CONSULTATION [id number] UNIT #: [id number] ROOM: 408 DOCTOR: SMITH TREJO MD BIRTHDATE: [birth year] DOS: 07/20/2019 HISTORY OF PRESENT ILLNESS: This is a 69-year-old -[place] woman with a history of morbid obesity, asthma, COPD, coronary artery disease. She had a stent deployed in the circumflex artery in 2010. I believe once the heart catheterization that showed patent stent done later demonstrated a patent stent. She has essential hypertension, GERD, fatty liver, hypothyroidism and dementia. She has had hysterectomy, tonsillectomy, foot surgery/Achilles tendon repair as well. Bilateral hip replacements. When I talked to the patient, she seemed to be very ambivalent and is evading answers. I think this is because of dementia. She at this time does not have any chest pain and does not recall if she had any. She had no palpitations. No swelling of the legs. She has had a cough for quite some time. No fever or chills. All this information does not seem to be very reliable that is why I reviewed the resident's notes. SOCIAL HISTORY: She smokes cigarettes regularly. Lives with a boyfriend. FAMILY HISTORY: Father had PR, in his 60s. Mother had COPD. HOME MEDICATIONS: Albuterol HFA, ascorbic acid, aspirin 81 daily, atorvastatin 40 daily, ferrous sulfate 325 mg daily, Imdur 30 q.a.m., levothyroxine 125 mcg daily, losartan 50 mg b.i.d., and vitamin D. PHYSICAL EXAMINATION: GENERAL: This reveals a patient who is moderately obese. She is alert, but she is clearly demented. She is afebrile. There is no thyromegaly or finger clubbing. She is not cyanotic, not jaundiced. VITAL SIGNS: Pulse is 66 regular, blood pressure 120/60. NECK: JVP normal. AJR is negative. There is no carotid bruit. HEART: There is no cardiomegaly, no murmurs are present. Pedal pulses are excellent. EXTREMITIES: There is no edema in lower extremities. RESPIRATORY: She is not tachypneic. Percussion note is normal. Auscultation reveals moderately reduced breath sounds in both lungs with lot of inspiratory and expiratory rhonchi and expiratory wheezes bilaterally. ABDOMEN: Large, supple, nontender. No bruits present. DIAGNOSTIC STUDIES: An ECG showed normal sinus rhythm with flattened T waves in lateral chest leads. Troponin I level is normal. Renal functions are also normal, as is hemoglobin. IMPRESSION: 1. This patient allegedly had chest pain, which she does not seem to remember. With her eCg normal, troponin levels also normal, I think you should just work up for acute myocardial infarction and if negative, I would not perform any further cardiac workup. 2. Chronic obstructive pulmonary disease exacerbation is quite obvious and is being addressed. [place], [place] REPORT OF CONSULTATION NAME: ASHLEY CAVAZOS UNIT #: [id number] ROOM: 408 DOCTOR: SMITH TREJO MD BIRTHDATE: [birth year] I thank you for this consult. SMITH TREJO MD CM:CONSTR:REPORT OF CONSULTATION 1729 08/03/19 0741 interface
--- NOTE | ~2019-07-20 | EKG ---
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
--- NOTE | ~2019-07-20 | EKG ---
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
--- NOTE | ~2019-07-20 | EKG ---
[place], [place] ELECTROCARDIOGRAM REPORT NAME: ASHLEY CAVAZOS UNIT #: [id number] ROOM: 408 DOCTOR: JOLENE DRAFT REPORT BIRTHDATE: [birth year] [facility] Test Date: 2019-07-20 Test Time: 11:06:32 Pat Name: ASHLEY CAVAZOS Department: Room: 408 Gender: F Stitch Wheeler: : 1950 Requested By: ELROY HI Order Number: [id number] Reading MD: Enedelia Lawson MD Measurements Intervals [place] Rate: 77 P: -4 [place]: 175 QRS: -44 QRSD: 87 T: 23 QT: 387 QTc: 438 Interpretive Statements Sinus rhythm Left anterior fascicular block Abnormal R-wave progression, late transition Compared to ECG 08/18/2018 14:27:16 Left anterior fascicular block now present Electronically Signed On 07-20-2019 13:42:42 PDT by Enedelia Lawson MD CM:EKGRPT:ELECTROCARDIOGRAM REPORT 1106 1342 ELROY CHAVARRIA DRAFT REPORT ELROY HI DO
[~2019-07-20 11:02] MED LIST changes: +CLARITIN10 MG PO; +CYCLOBENZAPRINE10 MG PO; -IMDUR ER30 MG PO; +IMDUR SA30 MG PO; +LIPITOR40 MG PO; +PLAVIX75 M1 PO; +ROBITUSSIN5 ML PO; +SYNTHROID,LEV125 MCG PO; -SYNTHROID,LEV175 MCG PO; +Vitamin D PO
[2019-07-20 11:19] VITALS: BP 100/56
[2019-07-20 11:34] LABS: BASO # 0.1 10*3/uL (0.0-0.1); BASO % 0.7 % (0.0-1.0); EOS # 0.3 10*3/uL (0.0-0.4); EOS % 2.9 % (1.0-4.0); HEMATOCRIT 48.5 % (37.0-47.0); HEMOGLOBIN 15.9 g/dl (12.0-16.0); LYMPH # 2.4 10*3/uL (1.3-4.4); LYMPH % 28.5 % (27.0-41.0); MEAN CELL VOLUME 99.4 fl (81.0-99.0); MEAN CORPUSCULAR HGB 32.6 pg (27.0-31.0); MEAN CORPUSCULAR HGB CONC 32.8 g/dl (33.0-37.0); MEAN PLATELET VOLUME 10.5 fl (9.6-12.3); MONO # 0.9 10*3/uL (0.1-1.0); MONO % 10.1 % (3.0-9.0); NEUT # 4.9 10*3/uL (2.3-7.9); NEUT % 57.6 % (47.0-73.0); PLATELET COUNT AUTOMATED 188 10*3/uL (130-400); RED BLOOD COUNT 4.88 10*6/uL (4.10-5.10); RED CELL DISTRI WIDTH 13.9 % (0-14.5); WHITE BLOOD COUNT 8.5 10*3/uL (4.8-10.8)
[2019-07-20 11:47] LABS: ACT PARTIAL THROMBO TIME 25.5 SECONDS (20.0-32.1); INTERNATIONAL NORM RATIO 0.9 (2.0-3.5)
[2019-07-20 11:49] LABS: ALBUMIN 3.5 gm/dl (3.1-4.5); ALKALINE PHOSPHATASE 108 U/L (45-117); BUN 18 mg/dl (7-24); CHLORIDE 105 mmol/L (98-107); CREATININE 0.76 mg/dL (0.55-1.02); POTASSIUM 4.2 mmol/L (3.5-5.1); SGOT/AST 55 IU/L (3-35); SGPT/ALT 79 U/L (12-78); SODIUM 139 mmol/L (136-145); TOTAL PROTEIN 7.5 gm/dL (6.4-8.2)
[2019-07-20 12:00] LABS: TROPONIN I < 0.015 ng/ml (<0.045)
--- NOTE | 2019-07-20 12:25 | NUR ---
PT RESTING IN BED AT THIS TIME. NO VOICED COMPLAINTS. CALL LIGHT WITHIN REACH. WILL CONTINUE TO MONITOR.
--- NOTE | 2019-07-20 13:00 | NUR ---
PT RESTING QUIELTY WITH AT HER BEDSIDE, PT DENIES ANY CHEST PAIN OR SOB AT THIS TIME. CALL LIGHT IN REACH WILL.
[2019-07-20 13:29] VITALS: BP 101/58
[2019-07-20 13:55] VITALS: BP 120/60
--- NOTE | 2019-07-20 13:55 | NUR ---
A 69, admitted to 4E, under the services of ELROY Wyatt DO with a diagnosis of chest pain. Chief complaint is pain under left breast left sided chest and down left arm today at home. Pt denies pain now. Pt is slight confused, alert and oriented to place and person but disoriented to time. States she doesn't know recent holiday, date, or what month or day it is. States the president is Rod. Patient arrived via stretcher from ER. Monitor applied. Initial assessment completed. Vital signs taken and recorded. See assessment for past medical history, medications and allergies. Patient and/or family oriented to unit. [facility] visitation policy reviewed. Body alarm turned on and pt encouraged to ask for assistance if she needs to get out of bed.
--- NOTE | 2019-07-20 14:30 | NUR ---
Pt did not know medications and is confused. I spoke with pt significant other Bill Oseguera regarding meds and confusion. Med list obtained. I asked Bill if confusion was pt baseline. Bill states that pt has dementia, states he told the people in the ER, "umpteen times." Bill states pt does wander at times. This was not communicated during report. I notified charge nurse as pt is at end of orantes.
[2019-07-20] MEDS ORDERED: VITAMIN D22000 UNIT PO (14:38)
[2019-07-20] MEDS ORDERED: IRON325 M1 PO (14:39)
[2019-07-20] MEDS ORDERED: VITAMIN C500 M4 PO (14:39)
[2019-07-20] MEDS ORDERED: ASPIRIN81 M1 PO (14:39)
--- NOTE | 2019-07-20 14:40 | NUR ---
Med rec updated.
--- NOTE | 2019-07-20 15:00 | NUR ---
Pt discharge via wheelchair in care of significant other.
--- NOTE | 2019-07-20 15:01 | NUR ---
Pt moved from 416-1 to 408-1 due to hx of dementia and risk to wander.
--- NOTE | 2019-07-20 15:20 | NUR ---
Dr. Lawson notified of consult. States he will be here in a few hours and will see her.
[2019-07-20 16:00] VITALS: BP 130/57
--- NOTE | 2019-07-20 17:23 | NUR ---
Dr. Lawson in and examined pt. Reviewed EKG, states it is normal. Notified that echo is ordered for pt already.
[2019-07-20 20:00] VITALS: BP 116/57
[2019-07-21] VITALS: BP 136/81
[2019-07-21 06:04] LABS: BASO % 0.1 % (0.0-1.0); HEMATOCRIT 49.4 % (37.0-47.0); HEMOGLOBIN 16.1 g/dl (12.0-16.0); LYMPH # 1.9 10*3/uL (1.3-4.4); LYMPH % 12.9 % (27.0-41.0); MEAN CELL VOLUME 99.8 fl (81.0-99.0); MEAN CORPUSCULAR HGB 32.5 pg (27.0-31.0); MEAN CORPUSCULAR HGB CONC 32.6 g/dl (33.0-37.0); MEAN PLATELET VOLUME 10.6 fl (9.6-12.3); MONO # 0.2 10*3/uL (0.1-1.0); MONO % 1.3 % (3.0-9.0); NEUT # 12.7 10*3/uL (2.3-7.9); NEUT % 85.2 % (47.0-73.0); PLATELET COUNT AUTOMATED 197 10*3/uL (130-400); RED BLOOD COUNT 4.95 10*6/uL (4.10-5.10); RED CELL DISTRI WIDTH 13.7 % (0-14.5); WHITE BLOOD COUNT 14.9 10*3/uL (4.8-10.8)
[2019-07-21 06:32] LABS: ALBUMIN 3.6 gm/dl (3.1-4.5); BUN 20 mg/dl (7-24); CHLORIDE 100 mmol/L (98-107); POTASSIUM 4.5 mmol/L (3.5-5.1); SODIUM 136 mmol/L (136-145)
[2019-07-21 06:41] LABS: ALKALINE PHOSPHATASE 110 U/L (45-117); CHOLESTEROL 194 mg/dL (<200); CREATININE 0.93 mg/dL (0.55-1.02); FREE T4 0.99 ng/dl (0.76-1.46); HDL CHOLESTEROL 63 mg/dl (40-60); LDL CHOLESTEROL 116 mg/dL (9-159); PHOSPHOROUS 4.1 mg/dL (2.5-4.9); SGOT/AST 56 IU/L (3-35); SGPT/ALT 88 U/L (12-78); THYROID STIM HORMONE (HS) 0.641 uIU/ml (0.358-4.75); TOTAL PROTEIN 7.8 gm/dL (6.4-8.2); TRIGLYCERIDES 74 mg/dl (<150); VLDL CHOLESTEROL 15 mg/dL (6-40)
[2019-07-21 07:23] LABS: VITAMIN D, 25-HYDROXY 40.4 ng/mL (30-100)
--- NOTE | 2019-07-21 07:26 | NUR ---
24 HR chart check completed.
[2019-07-21 08:00] VITALS: BP 142/86
[2019-07-21 08:15] LABS: ACT PARTIAL THROMBO TIME 25.4 SECONDS (20.0-32.1)
--- NOTE | 2019-07-21 08:28 | NUR ---
DR COTTRELL HERE TO ASSESS PATIENT AND DISCUSS PLAN OF CARE
[2019-07-21] MEDS ORDERED: PREDNISONE10 MG PO (10:00)
--- NOTE | 2019-07-21 10:01 | NUR ---
Discharge instructions reviewed with patient/family. Patient receptive and verbalizes understanding. Written instructions given to patient/family. ANJELICA MENDEZ
--- NOTE | 2019-07-21 10:01 | NUR ---
DR CAMPUZANO AND RESIDENTS HERE TO ASSESS PATIENT AND DISCUSS PLAN OF CARE
--- NOTE | 2019-07-21 12:55 | NUR ---
Discharge instructions reviewed with patient/family. Patient receptive and verbalizes understanding. Written instructions given to patient/family. OFFERED WC FOR D/C, DECLINED. AMBULATED OFF FLOOR IN CARE OF SIGNIFICANT OTHER ANJELICA MENDEZ
== END 2019-07-21 12:55 | disposition home or self-care (01) | DRG 202 ==
LOC: ED 11:02 → 4E 13:16 → EDHOLD 13:16 → 4E 13:28
PROVIDERS: Hospitalist; ADMIT Internal Medicine
DX: J20.9 Acute bronchitis, unspecified (principal); Z68.41 Body mass index [BMI] 40.0-44.9, adult; J45.909 Unspecified asthma, uncomplicated; I10 Essential (primary) hypertension; I25.10 Atherosclerotic heart disease of native coronary artery without angina pectoris; F03.90 Unspecified dementia, unspecified severity, without behavioral disturbance, psychotic disturbance, mood disturbance, and anxiety; J43.9 Emphysema, unspecified; F41.1 Generalized anxiety disorder; K21.9 Gastro-esophageal reflux disease without esophagitis; E78.00 Pure hypercholesterolemia, unspecified; E03.9 Hypothyroidism, unspecified; E66.01 Morbid (severe) obesity due to excess calories; Z96.643 Presence of artificial hip joint, bilateral; E78.5 Hyperlipidemia, unspecified; R74.0 Nonspecific elevation of levels of transaminase and lactic acid dehydrogenase [LDH]; E83.41 Hypermagnesemia; J41.0 Simple chronic bronchitis; K44.9 Diaphragmatic hernia without obstruction or gangrene; F17.210 Nicotine dependence, cigarettes, uncomplicated; J30.2 Other seasonal allergic rhinitis; R73.03 Prediabetes; E55.9 Vitamin D deficiency, unspecified; Z95.5 Presence of coronary angioplasty implant and graft; Z83.3 Family history of diabetes mellitus; Z82.49 Family history of ischemic heart disease and other diseases of the circulatory system; Z83.6 Family history of other diseases of the respiratory system; Z81.1 Family history of alcohol abuse and dependence; Z79.899 Other long term (current) drug therapy; Z79.82 Long term (current) use of aspirin; I25.2 Old myocardial infarction; Z87.01 Personal history of pneumonia (recurrent); Z85.118 Personal history of other malignant neoplasm of bronchus and lung; Z90.710 Acquired absence of both cervix and uterus; Z90.89 Acquired absence of other organs; Z71.6 Tobacco abuse counseling

== ENCOUNTER 2020-04-02 12:00 | Emergency (ER) | payer MEDICARE ==
[~2020-04-02] VITALS: Ht 152.4 cm; Wt 90.7 kg
[~2020-04-02 12:00] MED LIST changes: +IRON325 M1 PO; +VITAMIN C500 M4 PO; +VITAMIN D22000 UNIT PO
[2020-04-02 16:50] VITALS: BP 168/74
== END 2020-04-02 18:33 | disposition home or self-care (01) ==
LOC: ED 12:00
DX: T74.21XA Adult sexual abuse, confirmed, initial encounter (principal); F17.200 Nicotine dependence, unspecified, uncomplicated; Z90.710 Acquired absence of both cervix and uterus; Z98.890 Other specified postprocedural states; Z96.643 Presence of artificial hip joint, bilateral; Z79.899 Other long term (current) drug therapy; Z79.82 Long term (current) use of aspirin; Y07.50 Unspecified non-family member, perpetrator of maltreatment and neglect

== ENCOUNTER 2020-04-26 10:42 | Emergency (ER) | payer MEDICARE ==
[~2020-04-26] VITALS: Ht 152.4 cm; Wt 68.0 kg
[2020-04-26 10:51] VITALS: BP 175/95
[2020-04-26 11:22] LABS: BASO # 0.1 10*3/uL (0.0-0.1); BASO % 1.1 % (0.0-1.0); EOS # 0.1 10*3/uL (0.0-0.4); HEMATOCRIT 51.1 % (37.0-47.0); LYMPH # 2.1 10*3/uL (1.3-4.4); LYMPH % 32.5 % (27.0-41.0); MEAN CELL VOLUME 96.1 fl (81.0-99.0); MEAN CORPUSCULAR HGB 31.6 pg (27.0-31.0); MEAN CORPUSCULAR HGB CONC 32.9 g/dl (33.0-37.0); MEAN PLATELET VOLUME 10.2 fl (9.6-12.3); MONO # 0.4 10*3/uL (0.1-1.0); MONO % 5.5 % (3.0-9.0); NEUT # 3.9 10*3/uL (2.3-7.9); NEUT % 58.6 % (47.0-73.0); PLATELET COUNT AUTOMATED 135 10*3/uL (130-400); RED BLOOD COUNT 5.32 10*6/uL (4.10-5.10); RED CELL DISTRI WIDTH 15.7 % (0-14.5); WHITE BLOOD COUNT 6.6 10*3/uL (4.8-10.8)
[2020-04-26 11:35] LABS: ALBUMIN 4.1 gm/dl (3.1-4.5); ALKALINE PHOSPHATASE 107 U/L (45-117); BUN 17 mg/dl (7-24); CHLORIDE 102 mmol/L (98-107); POTASSIUM 3.7 mmol/L (3.5-5.1); SGOT/AST 61 IU/L (3-35); SGPT/ALT 80 U/L (12-78); SODIUM 135 mmol/L (136-145); TOTAL PROTEIN 8.4 gm/dL (6.4-8.2)
[2020-04-26 11:41] LABS: ETHYL ALCOHOL < 3.0 mg/dl (<3)
[2020-04-26 11:48] LABS: CLARITY CLEAR (CLEAR); COLOR STRAW (YELLOW)
[2020-04-26 11:49] LABS: BILIRUBIN NEGATIVE (NEGATIVE); BLOOD 1+ (NEGATIVE); GLUCOSE NEGATIVE (NEGATIVE); KETONE NEGATIVE (NEGATIVE); LEUKO ESTERASE 2+ (NEGATIVE); NITRITE NEGATIVE (NEGATIVE); UROBILINOGEN 0.2 E.U./dl (0.2-1.0)
[2020-04-26 11:55] LABS: URINE AMPHETAMINES < 1000 (1000ng/ml); URINE BARBITURATES < 200 (200ng/ml); URINE BENZODIAZEPINES < 200 (200ng/ml); URINE CANNABINOIDS (THC) < 50 (50ng/ml); URINE COCAINE < 300 (300ng/ml); URINE METHADONE < 300 (300ng/ml); URINE OPIATES < 300 (300ng/ml)
[2020-04-26 11:56] LABS: BACTERIA 1+
[2020-04-26 11:57] LABS: WBC 21-30 wbc/hpf (0-5)
[2020-04-26 11:58] LABS: URINE PHENCYCLIDINE < 25 (25ng/ml)
== END 2020-04-26 13:00 | disposition left against medical advice (07) ==
LOC: ED 10:42
PROVIDERS: Emergency Medicine
DX: T76.21XA Adult sexual abuse, suspected, initial encounter (principal); I25.10 Atherosclerotic heart disease of native coronary artery without angina pectoris; F41.9 Anxiety disorder, unspecified; J44.9 Chronic obstructive pulmonary disease, unspecified; K21.9 Gastro-esophageal reflux disease without esophagitis; E78.00 Pure hypercholesterolemia, unspecified; Z53.29 Procedure and treatment not carried out because of patient's decision for other reasons; X58.XXXA Exposure to other specified factors, initial encounter; Y93.89 Activity, other specified; Y92.89 Other specified places as the place of occurrence of the external cause; Y99.8 Other external cause status

== ENCOUNTER 2020-07-05 11:09 | Emergency (ER) | payer MEDICARE ==
[~2020-07-05] VITALS: Ht 152.4 cm; Wt 90.7 kg
[2020-07-05 11:43] LABS: BASO # 0.1 10*3/uL (0.0-0.1); BASO % 1.4 % (0.0-1.0); EOS # 0.2 10*3/uL (0.0-0.4); EOS % 2.5 % (1.0-4.0); HEMATOCRIT 48.1 % (37.0-47.0); LYMPH # 1.9 10*3/uL (1.3-4.4); LYMPH % 29.7 % (27.0-41.0); MEAN CELL VOLUME 97.8 fl (81.0-99.0); MEAN CORPUSCULAR HGB 31.7 pg (27.0-31.0); MEAN CORPUSCULAR HGB CONC 32.4 g/dl (33.0-37.0); MEAN PLATELET VOLUME 10.3 fl (9.6-12.3); MONO # 0.4 10*3/uL (0.1-1.0); MONO % 6.7 % (3.0-9.0); NEUT # 3.9 10*3/uL (2.3-7.9); NEUT % 59.2 % (47.0-73.0); PLATELET COUNT AUTOMATED 156 10*3/uL (130-400); RED BLOOD COUNT 4.92 10*6/uL (4.10-5.10); RED CELL DISTRI WIDTH 16.8 % (0-14.5); WHITE BLOOD COUNT 6.5 10*3/uL (4.8-10.8)
[2020-07-05 11:53] LABS: ACT PARTIAL THROMBO TIME 28.4 SECONDS (20.0-32.1)
[2020-07-05 11:58] LABS: ALBUMIN 4.1 gm/dl (3.1-4.5); ALKALINE PHOSPHATASE 115 U/L (45-117); BUN 15 mg/dl (7-24); CHLORIDE 101 mmol/L (98-107); LIPASE 83 U/L (73-393); POTASSIUM 3.8 mmol/L (3.5-5.1); SGOT/AST 60 IU/L (3-35); SGPT/ALT 68 U/L (12-78); SODIUM 139 mmol/L (136-145); TOTAL PROTEIN 8.6 gm/dL (6.4-8.2)
[2020-07-05 12:01] LABS: TROPONIN I < 0.015 ng/ml (<0.045)
[2020-07-05 12:13] VITALS: BP 129/54
[2020-07-05 12:21] LABS: BILIRUBIN Negative (Negative); BLOOD Negative (Negative); CLARITY Clear (Clear); COLOR Yellow (Yellow); GLUCOSE Negative (Negative); KETONE Negative (Negative); LEUKO ESTERASE 2+ (Negative); NITRITE Negative (Negative); SPECIFIC GRAVITY 1.015 (1.001-1.030)
[2020-07-05 12:31] LABS: BACTERIA 1+; WBC 16-20 wbc/hpf (0-5)
[2020-07-05] MEDS ORDERED: PREDNISONE50 MG PO (12:39)
[2020-07-05] MEDS ORDERED: PROVENTIL HFA6.7 GM INH (12:39)
[2020-07-05] MEDS ORDERED: ZITHROMAX500 MG PO (12:39)
== END 2020-07-05 12:50 | disposition left against medical advice (07) ==
LOC: ED 11:09
PROVIDERS: Nurse Practitioner Family
DX: J44.1 Chronic obstructive pulmonary disease with (acute) exacerbation (principal); R07.89 Other chest pain; Z79.899 Other long term (current) drug therapy

== ENCOUNTER 2020-12-28 11:13 | Inpatient (IN) | payer MEDICARE ==
[~2020-12-28] VITALS: Ht 167.6 cm; Wt 108.9 kg
[~2020-12-28 11:13] MED LIST changes: +PROVENTIL HFA6.7 GM INH; +RIVASTIGMINE1 EACH T; +Synthroid,Levo25 MCG PO; +VITAMIN D350 MC2 PO; +ZITHROMAX500 MG PO
[2020-12-28 11:51] VITALS: BP 162/70
[2020-12-29 06:36] LABS: CREATININE 1.35 mg/dL (0.55-1.02); TOTAL PROTEIN 8.3 gm/dL (6.4-8.2)
[2020-12-29 07:19] VITALS: BP 163/84
[2020-12-29 19:21] LABS: BILIRUBIN Negative (Negative); BLOOD 1+ (Negative); CLARITY Clear (Clear); COLOR Yellow (Yellow); GLUCOSE Negative (Negative); KETONE Negative (Negative); LEUKO ESTERASE Trace (Negative); NITRITE Negative (Negative); SPECIFIC GRAVITY 1.025 (1.001-1.030)
[2020-12-29 19:35] LABS: BACTERIA 1+
[2020-12-29 20:00] VITALS: BP 130/72
[2020-12-30 07:55] VITALS: BP 125/76
[2020-12-30 20:00] VITALS: BP 138/76
[2020-12-31 07:25] VITALS: BP 122/63
[2020-12-31 20:00] VITALS: BP 139/89
[2021-01-01 08:00] VITALS: BP 126/64
[2021-01-01 19:41] VITALS: BP 136/71
[2021-01-02 07:40] VITALS: BP 125/56
[2021-01-02 10:45] LABS: BASO # 0.1 10*3/uL (0.0-0.1); BASO % 1.2 % (0.0-1.0); EOS # 0.2 10*3/uL (0.0-0.4); EOS % 3.1 % (1.0-4.0); HEMATOCRIT 42.4 % (37.0-47.0); LYMPH # 1.7 10*3/uL (1.3-4.4); LYMPH % 32.5 % (27.0-41.0); MEAN CELL VOLUME 100.7 fl (81.0-99.0); MEAN CORPUSCULAR HGB 32.5 pg (27.0-31.0); MEAN CORPUSCULAR HGB CONC 32.3 g/dl (33.0-37.0); MEAN PLATELET VOLUME 10.9 fl (9.6-12.3); MONO # 0.3 10*3/uL (0.1-1.0); MONO % 5.1 % (3.0-9.0); NEUT % 57.5 % (47.0-73.0); PLATELET COUNT AUTOMATED 120 10*3/uL (130-400); RED BLOOD COUNT 4.21 10*6/uL (4.10-5.10); RED CELL DISTRI WIDTH 16.5 % (0-14.5); WHITE BLOOD COUNT 5.1 10*3/uL (4.8-10.8)
[2021-01-02 11:00] LABS: ALBUMIN 4.1 gm/dl (3.1-4.5); CREATININE 1.35 mg/dL (0.55-1.02); POTASSIUM 4.4 mmol/L (3.5-5.1); TOTAL PROTEIN 8.1 gm/dL (6.4-8.2)
[2021-01-02 20:00] VITALS: BP 122/70
[2021-01-03 07:10] VITALS: BP 120/70
[2021-01-03 20:00] VITALS: BP 125/81
[2021-01-04 07:10] VITALS: BP 118/50
[2021-01-04 19:58] VITALS: BP 114/67
[2021-01-05 07:17] VITALS: BP 123/67
[2021-01-05 09:41] LABS: FREE T4 0.46 ng/dl (0.76-1.46)
[2021-01-05 09:44] LABS: THYROID STIM HORMONE (HS) 98.7 uIU/ml (0.358-4.75)
[2021-01-05] MEDS ORDERED: VITAMIN C500 M4 PO (10:16)
[2021-01-05] MEDS ORDERED: VITAMIN D350 MC2 PO (10:16)
[2021-01-05] MEDS ORDERED: ROZEREM8 MG PO (10:16)
[2021-01-05] MEDS ORDERED: RISPERIDONE0.5 MG PO (10:16)
[2021-01-05] MEDS ORDERED: MEMANTINE HCL10 MG PO (10:16)
[2021-01-05] MEDS ORDERED: RIVASTIGMINE TAR6 M1 PO (10:26)
[2021-01-05] MEDS ORDERED: SYNTHROID,LEVO75 MCG PO (11:31)
== END 2021-01-05 13:00 | disposition home health service (06) | DRG 885 ==
LOC: 3N 11:13
PROVIDERS: Counselor Professional; Hospitalist; Nurse Practitioner Women's Health; ADMIT Psychiatry & Neurology Psychiatry; ATTEND Psychiatry & Neurology Psychiatry
DX: F23 Brief psychotic disorder (principal); F63.81 Intermittent explosive disorder; N17.0 Acute kidney failure with tubular necrosis; F39 Unspecified mood [affective] disorder; F03.90 Unspecified dementia, unspecified severity, without behavioral disturbance, psychotic disturbance, mood disturbance, and anxiety; F41.9 Anxiety disorder, unspecified; J44.9 Chronic obstructive pulmonary disease, unspecified; K76.0 Fatty (change of) liver, not elsewhere classified; E55.9 Vitamin D deficiency, unspecified; J45.909 Unspecified asthma, uncomplicated; R41.9 Unspecified symptoms and signs involving cognitive functions and awareness; F17.210 Nicotine dependence, cigarettes, uncomplicated; I49.8 Other specified cardiac arrhythmias; R74.01 Elevation of levels of liver transaminase levels; Z71.6 Tobacco abuse counseling; Z95.5 Presence of coronary angioplasty implant and graft; Z90.710 Acquired absence of both cervix and uterus

== ENCOUNTER → 2021-04-01 | Outpatient (CLI) | payer MEDICARE ==
[~2021-04-01] MED LIST changes: +MEMANTINE HCL10 MG PO; +RISPERIDONE0.5 MG PO; +RIVASTIGMINE TAR6 M1 PO; +ROZEREM8 MG PO; +SYNTHROID,LEVO75 MCG PO
[2021-04-01 11:46] LABS: BASO # 0.1 10*3/uL (0.0-0.1); BASO % 0.7 % (0.0-1.0); EOS # 0.2 10*3/uL (0.0-0.4); EOS % 3.1 % (1.0-4.0); HEMATOCRIT 44.4 % (37.0-47.0); LYMPH # 1.6 10*3/uL (1.3-4.4); MEAN CELL VOLUME 96.3 fl (81.0-99.0); MEAN CORPUSCULAR HGB 30.2 pg (27.0-31.0); MEAN CORPUSCULAR HGB CONC 31.3 g/dl (33.0-37.0); MEAN PLATELET VOLUME 10.6 fl (9.6-12.3); MONO # 0.5 10*3/uL (0.1-1.0); MONO % 7.4 % (3.0-9.0); NEUT # 4.3 10*3/uL (2.3-7.9); NEUT % 64.2 % (47.0-73.0); PLATELET COUNT AUTOMATED 185 10*3/uL (130-400); RED BLOOD COUNT 4.61 10*6/uL (4.10-5.10); RED CELL DISTRI WIDTH 15.3 % (0-14.5); RETICULOCYTE % 1.94 % (0.50-2.50); WHITE BLOOD COUNT 6.8 10*3/uL (4.8-10.8)
[2021-04-01 12:02] LABS: ALBUMIN 3.6 gm/dl (3.1-4.5); ALKALINE PHOSPHATASE 131 U/L (45-117); BUN 11 mg/dl (7-24); CHLORIDE 105 mmol/L (98-107); CHOLESTEROL 140 mg/dL (<200); CREATININE 0.74 mg/dL (0.55-1.02); GAMMA GLUTAMYL TRANSPEPTIDASE 198 U/L (5-55); IRON 66 ug/dL (50-170); LDL CHOLESTEROL 59 mg/dL (9-159); POTASSIUM 4.2 mmol/L (3.5-5.1); SGOT/AST 55 IU/L (3-35); SGPT/ALT 51 U/L (12-78); SODIUM 140 mmol/L (136-145); T3 UPTAKE 30 % (31-39); THYROXINE (T4) TOTAL 13.3 ug/dl (4.8-13.9); TOTAL IRON BINDING CAPACITY 410 ug/dl (250-450); TOTAL PROTEIN 8.3 gm/dL (6.4-8.2); TRIGLYCERIDES 121 mg/dl (<150)
[2021-04-01 12:10] LABS: FERRITIN 58.5 ng/mL (10.0-291.0); VITAMIN D, 25-HYDROXY 39.6 ng/mL (30-100)
== END | disposition home or self-care (01) ==
LOC: LAB 11:01
PROVIDERS: ATTEND Family Medicine
DX: E78.5 Hyperlipidemia, unspecified (principal); R79.89 Other specified abnormal findings of blood chemistry; R53.83 Other fatigue; E55.9 Vitamin D deficiency, unspecified; R74.8 Abnormal levels of other serum enzymes

== ENCOUNTER 2021-09-06 18:31 | Inpatient (IN) | payer MEDICARE ==
[~2021-09-06] VITALS: Ht 152.4 cm; Wt 95.9 kg
[2021-09-06 18:32] VITALS: BP 122/52
[2021-09-06 18:59] LABS: BASO % 0.7 % (0.0-1.0); EOS # 0.6 10*3/uL (0.0-0.4); EOS % 10.3 % (1.0-4.0); HEMATOCRIT 45.8 % (37.0-47.0); LYMPH # 1.4 10*3/uL (1.3-4.4); LYMPH % 24.9 % (27.0-41.0); MEAN CELL VOLUME 95.4 fl (81.0-99.0); MEAN CORPUSCULAR HGB 29.6 pg (27.0-31.0); MEAN PLATELET VOLUME 10.4 fl (9.6-12.3); MONO # 0.6 10*3/uL (0.1-1.0); MONO % 10.3 % (3.0-9.0); NEUT # 3.1 10*3/uL (2.3-7.9); NEUT % 53.5 % (47.0-73.0); PLATELET COUNT AUTOMATED 143 10*3/uL (130-400); RED CELL DISTRI WIDTH 16.3 % (0-14.5); WHITE BLOOD COUNT 5.8 10*3/uL (4.8-10.8)
[2021-09-06 19:09] LABS: ACT PARTIAL THROMBO TIME 26.2 SECONDS (20.0-32.1)
[2021-09-06 19:14] LABS: ALBUMIN 2.9 gm/dl (3.1-4.5); ALKALINE PHOSPHATASE 119 U/L (45-117); BUN 21 mg/dl (7-24); CHLORIDE 104 mmol/L (98-107); CREATININE 1.01 mg/dL (0.55-1.02); LIPASE 77 U/L (73-393); POTASSIUM 4.5 mmol/L (3.5-5.1); SGOT/AST 51 IU/L (3-35); SGPT/ALT 47 U/L (12-78); SODIUM 140 mmol/L (136-145); TOTAL PROTEIN 7.8 gm/dL (6.4-8.2)
[2021-09-07 03:48] VITALS: BP 142/89
[2021-09-07 06:42] LABS: BASO % 0.3 % (0.0-1.0); EOS % 0.1 % (1.0-4.0); HEMATOCRIT 46.4 % (37.0-47.0); LYMPH % 14.5 % (27.0-41.0); MEAN CELL VOLUME 94.7 fl (81.0-99.0); MEAN CORPUSCULAR HGB 29.2 pg (27.0-31.0); MEAN CORPUSCULAR HGB CONC 30.8 g/dl (33.0-37.0); MEAN PLATELET VOLUME 11.1 fl (9.6-12.3); MONO # 0.1 10*3/uL (0.1-1.0); MONO % 1.2 % (3.0-9.0); NEUT # 5.6 10*3/uL (2.3-7.9); NEUT % 83.5 % (47.0-73.0); PLATELET COUNT AUTOMATED 144 10*3/uL (130-400); RED CELL DISTRI WIDTH 16.3 % (0-14.5); WHITE BLOOD COUNT 6.7 10*3/uL (4.8-10.8)
[2021-09-07 06:48] LABS: BUN 19 mg/dl (7-24); CHLORIDE 105 mmol/L (98-107); CREATININE 0.83 mg/dL (0.55-1.02); POTASSIUM 4.5 mmol/L (3.5-5.1); SGOT/AST 48 IU/L (3-35); SGPT/ALT 51 U/L (12-78); SODIUM 139 mmol/L (136-145)
[2021-09-07 06:58] LABS: ALKALINE PHOSPHATASE 120 U/L (45-117); THYROID STIM HORMONE (HS) 0.716 uIU/ml (0.358-4.75)
[2021-09-07] MEDS ORDERED: CYMBALTA60 MG PO (11:33)
[2021-09-07] MEDS ORDERED: CLARITIN10 MG PO (11:33)
[2021-09-07 14:58] VITALS: BP 136/60
[2021-09-07 15:30] VITALS: BP 123/74
[2021-09-07 16:32] VITALS: BP 118/61
[2021-09-07 20:04] VITALS: BP 136/103
[2021-09-07 21:29] VITALS: BP 136/103
[2021-09-08 03:40] VITALS: BP 124/62
[2021-09-08 05:03] LABS: BUN 27 mg/dl (7-24); CHLORIDE 108 mmol/L (98-107); CREATININE 0.93 mg/dL (0.55-1.02); POTASSIUM 4.9 mmol/L (3.5-5.1); SODIUM 141 mmol/L (136-145)
[2021-09-08 06:08] LABS: BASO % 0.2 % (0.0-1.0); HEMATOCRIT 45.2 % (37.0-47.0); LYMPH # 1.1 10*3/uL (1.3-4.4); LYMPH % 12.5 % (27.0-41.0); MEAN CELL VOLUME 96.8 fl (81.0-99.0); MEAN CORPUSCULAR HGB 29.6 pg (27.0-31.0); MEAN CORPUSCULAR HGB CONC 30.5 g/dl (33.0-37.0); MONO # 0.2 10*3/uL (0.1-1.0); MONO % 2.1 % (3.0-9.0); NEUT # 7.4 10*3/uL (2.3-7.9); NEUT % 84.7 % (47.0-73.0); PLATELET COUNT AUTOMATED 154 10*3/uL (130-400); RED BLOOD COUNT 4.67 10*6/uL (4.10-5.10); WHITE BLOOD COUNT 8.7 10*3/uL (4.8-10.8)
[2021-09-08 08:00] VITALS: BP 144/64
[2021-09-08 08:40] VITALS: BP 144/64
[2021-09-08 12:00] VITALS: BP 158/90
[2021-09-08 16:00] VITALS: BP 158/90
[2021-09-08 20:00] VITALS: BP 154/84
[2021-09-09] VITALS: BP 142/72
[2021-09-09 04:02] LABS: BILIRUBIN Negative (Negative); BLOOD Trace-Intact (Negative); CLARITY Clear (Clear); COLOR Yellow (Yellow); GLUCOSE Negative (Negative); KETONE Negative (Negative); LEUKO ESTERASE Trace (Negative); NITRITE Negative (Negative); PH 6.5 (4.5-8.0); UROBILINOGEN 0.2 E.U./dl (0.0-1.0)
[2021-09-09 04:22] LABS: BACTERIA TRACE; RBC 21-30 rbc/hpf (0-2)
[2021-09-09 08:00] VITALS: BP 154/66
[2021-09-09 12:00] VITALS: BP 144/65
[2021-09-09] MEDS ORDERED: ZITHROMAX500 MG PO (13:22)
[2021-09-09] MEDS ORDERED: PREDNISONE10 MG PO (13:22)
[2021-09-09] MEDS ORDERED: OMNICEF300 MG PO (13:22)
== END 2021-09-09 14:25 | disposition home or self-care (01) | DRG 191 ==
LOC: ED 18:31 → EDHOLD 21:05 → 4E 09-08 07:02
PROVIDERS: Hospitalist; Internal Medicine; Physician Assistant; ADMIT Emergency Medicine; ATTEND Emergency Medicine
DX: J43.9 Emphysema, unspecified (principal); E44.0 Moderate protein-calorie malnutrition; F23 Brief psychotic disorder; F02.81 Dementia in other diseases classified elsewhere, unspecified severity, with behavioral disturbance; Z68.41 Body mass index [BMI] 40.0-44.9, adult; Z20.822 Contact with and (suspected) exposure to COVID-19; I25.10 Atherosclerotic heart disease of native coronary artery without angina pectoris; K76.0 Fatty (change of) liver, not elsewhere classified; R73.9 Hyperglycemia, unspecified; E83.41 Hypermagnesemia; F17.210 Nicotine dependence, cigarettes, uncomplicated; R74.01 Elevation of levels of liver transaminase levels; Z96.643 Presence of artificial hip joint, bilateral; J45.20 Mild intermittent asthma, uncomplicated; I10 Essential (primary) hypertension; E03.9 Hypothyroidism, unspecified; G30.9 Alzheimer's disease, unspecified; K21.9 Gastro-esophageal reflux disease without esophagitis; E78.5 Hyperlipidemia, unspecified; Z90.710 Acquired absence of both cervix and uterus; Z95.5 Presence of coronary angioplasty implant and graft; Z82.49 Family history of ischemic heart disease and other diseases of the circulatory system; Z82.5 Family history of asthma and other chronic lower respiratory diseases; Z79.51 Long term (current) use of inhaled steroids; Z79.82 Long term (current) use of aspirin; Z79.899 Other long term (current) drug therapy; F41.1 Generalized anxiety disorder

== ENCOUNTER 2021-09-22 11:42 | Emergency (ER) | payer OTHER ==
[~2021-09-22] VITALS: Ht 160 cm; Wt 117.9 kg
[~2021-09-22 11:42] MED LIST changes: +CYMBALTA60 MG PO; +OMNICEF300 MG PO
[2021-09-22 11:48] VITALS: BP 106/53
[2021-09-22 12:01] LABS: BASO # 0.1 10*3/uL (0.0-0.1); BASO % 0.6 % (0.0-1.0); EOS # 0.2 10*3/uL (0.0-0.4); EOS % 1.8 % (1.0-4.0); HEMATOCRIT 44.9 % (37.0-47.0); LYMPH # 2.1 10*3/uL (1.3-4.4); LYMPH % 15.7 % (27.0-41.0); MEAN CELL VOLUME 94.5 fl (81.0-99.0); MEAN CORPUSCULAR HGB 29.9 pg (27.0-31.0); MEAN CORPUSCULAR HGB CONC 31.6 g/dl (33.0-37.0); MEAN PLATELET VOLUME 10.1 fl (9.6-12.3); MONO # 0.9 10*3/uL (0.1-1.0); MONO % 6.8 % (3.0-9.0); NEUT # 10.1 10*3/uL (2.3-7.9); NEUT % 74.1 % (47.0-73.0); PLATELET COUNT AUTOMATED 167 10*3/uL (130-400); RED BLOOD COUNT 4.75 10*6/uL (4.10-5.10); RED CELL DISTRI WIDTH 16.9 % (0-14.5); WHITE BLOOD COUNT 13.6 10*3/uL (4.8-10.8)
[2021-09-22 12:11] LABS: ACT PARTIAL THROMBO TIME 23.1 SECONDS (20.0-32.1)
[2021-09-22 12:18] LABS: ALKALINE PHOSPHATASE 103 U/L (45-117); BUN 23 mg/dl (7-24); CHLORIDE 104 mmol/L (98-107); CREATININE 0.81 mg/dL (0.55-1.02); POTASSIUM 3.9 mmol/L (3.5-5.1); SGOT/AST 44 IU/L (3-35); SGPT/ALT 92 U/L (12-78); SODIUM 139 mmol/L (136-145); TOTAL PROTEIN 7.1 gm/dL (6.4-8.2)
[2021-09-22] MEDS ORDERED: IMDUR SA30 MG PO (12:43)
== END 2021-09-22 14:10 | disposition home or self-care (01) ==
LOC: ED 11:42
PROVIDERS: Student in an Organized Health Care Education/Training Program
DX: J44.1 Chronic obstructive pulmonary disease with (acute) exacerbation (principal); Z79.899 Other long term (current) drug therapy; Z79.82 Long term (current) use of aspirin; F17.200 Nicotine dependence, unspecified, uncomplicated

== ENCOUNTER 2021-10-31 13:43 | Emergency (ER) | payer OTHER ==
[~2021-10-31] VITALS: Ht 152.4 cm; Wt 108.9 kg
[2021-10-31 13:49] VITALS: BP 127/55
[2021-10-31 14:10] LABS: BASO % 0.9 % (0.0-1.0); EOS # 0.3 10*3/uL (0.0-0.4); HEMATOCRIT 42.6 % (37.0-47.0); LYMPH # 1.3 10*3/uL (1.3-4.4); LYMPH % 28.1 % (27.0-41.0); MEAN CELL VOLUME 96.8 fl (81.0-99.0); MEAN CORPUSCULAR HGB 30.2 pg (27.0-31.0); MEAN CORPUSCULAR HGB CONC 31.2 g/dl (33.0-37.0); MEAN PLATELET VOLUME 10.4 fl (9.6-12.3); MONO # 0.7 10*3/uL (0.1-1.0); MONO % 13.8 % (3.0-9.0); NEUT # 2.3 10*3/uL (2.3-7.9); NEUT % 49.8 % (47.0-73.0); PLATELET COUNT AUTOMATED 135 10*3/uL (130-400); RED CELL DISTRI WIDTH 16.1 % (0-14.5); WHITE BLOOD COUNT 4.7 10*3/uL (4.8-10.8)
[2021-10-31 14:16] LABS: ACT PARTIAL THROMBO TIME 25.8 SECONDS (20.0-32.1)
[2021-10-31 14:21] LABS: ALBUMIN 2.9 gm/dl (3.1-4.5); ALKALINE PHOSPHATASE 98 U/L (45-117); BUN 11 mg/dl (7-24); CHLORIDE 108 mmol/L (98-107); CPK 61 U/L (26-192); CREATININE 0.69 mg/dL (0.55-1.02); POTASSIUM 4.2 mmol/L (3.5-5.1); SGOT/AST 44 IU/L (3-35); SGPT/ALT 48 U/L (12-78); SODIUM 142 mmol/L (136-145); TOTAL PROTEIN 7.1 gm/dL (6.4-8.2)
[2021-10-31] MEDS ORDERED: VIBRAMYCIN100 MG PO (15:50)
[2021-10-31] MEDS ORDERED: PREDNISONE20 M1 PO (15:50)
== END 2021-10-31 18:56 | disposition home or self-care (01) ==
LOC: ED 13:43
PROVIDERS: Emergency Medicine
DX: J44.1 Chronic obstructive pulmonary disease with (acute) exacerbation (principal); J45.909 Unspecified asthma, uncomplicated; K21.9 Gastro-esophageal reflux disease without esophagitis; E78.00 Pure hypercholesterolemia, unspecified; E03.9 Hypothyroidism, unspecified; I25.10 Atherosclerotic heart disease of native coronary artery without angina pectoris; Z79.899 Other long term (current) drug therapy; Z79.82 Long term (current) use of aspirin; Z90.710 Acquired absence of both cervix and uterus; Z90.89 Acquired absence of other organs; Z98.890 Other specified postprocedural states; Z87.891 Personal history of nicotine dependence

== ENCOUNTER → 2022-02-17 | Outpatient (CLI) | payer OTHER ==
[~2022-02-17] MED LIST changes: +PREDNISONE20 M1 PO
[2022-02-17 10:09] LABS: BASO # 0.1 10*3/uL (0.0-0.1); BASO % 0.7 % (0.0-1.0); EOS # 0.2 10*3/uL (0.0-0.4); EOS % 2.9 % (1.0-4.0); LYMPH # 1.3 10*3/uL (1.3-4.4); LYMPH % 17.3 % (27.0-41.0); MEAN CELL VOLUME 95.8 fl (81.0-99.0); MEAN CORPUSCULAR HGB 30.1 pg (27.0-31.0); MEAN CORPUSCULAR HGB CONC 31.4 g/dl (33.0-37.0); MEAN PLATELET VOLUME 9.9 fl (9.6-12.3); MONO # 0.6 10*3/uL (0.1-1.0); MONO % 8.6 % (3.0-9.0); NEUT # 5.1 10*3/uL (2.3-7.9); PLATELET COUNT AUTOMATED 158 10*3/uL (130-400); RED BLOOD COUNT 4.49 10*6/uL (4.10-5.10); RED CELL DISTRI WIDTH 16.3 % (0-14.5); RETICULOCYTE % 2.19 % (0.50-2.50); WHITE BLOOD COUNT 7.3 10*3/uL (4.8-10.8)
[2022-02-17 10:28] LABS: ALKALINE PHOSPHATASE 127 U/L (45-117); BUN 12 mg/dl (7-24); CHLORIDE 102 mmol/L (98-107); CHOLESTEROL 130 mg/dL (<200); CREATININE 1.07 mg/dL (0.55-1.02); GAMMA GLUTAMYL TRANSPEPTIDASE 216 U/L (5-55); IRON 82 ug/dL (50-170); LDL CHOLESTEROL 58 mg/dL (9-159); POTASSIUM 4.4 mmol/L (3.5-5.1); SGOT/AST 69 IU/L (3-35); SGPT/ALT 48 U/L (12-78); SODIUM 139 mmol/L (136-145); THYROXINE (T4) TOTAL 10.5 ug/dl (4.8-13.9); TOTAL PROTEIN 7.7 gm/dL (6.4-8.2); TRIGLYCERIDES 83 mg/dl (<150)
[2022-02-17 10:36] LABS: T3 UPTAKE 28 % (31-39); TOTAL IRON BINDING CAPACITY 399 ug/dl (250-450)
[2022-02-17 14:07] LABS: VITAMIN D, 25-HYDROXY 42.7 ng/mL (30-100)
[2022-02-17 14:08] LABS: FERRITIN 36.8 ng/mL (10.0-291.0)
== END | disposition home or self-care (01) ==
LOC: LAB 09:46
PROVIDERS: ATTEND Family Medicine
DX: E78.5 Hyperlipidemia, unspecified (principal); E55.9 Vitamin D deficiency, unspecified; R79.89 Other specified abnormal findings of blood chemistry; R53.83 Other fatigue; R74.8 Abnormal levels of other serum enzymes